=== PATIENT | male | born 1960 | race Caucasian/White ===

== ENCOUNTER → 2020-07-23 | Outpatient (REF) | payer OTHER ==
--- NOTE | 2020-07-23 15:02 | Diagnostic Imaging Report ---
EXAMINATION: Magnetic resonance imaging of the right knee without intravenous contrast. DATE: July 23, 2020. COMPARISON: None. INDICATION: 60-year-old male, right medial knee pain. Stepped in hole one week ago. [place] a pop. TECHNIQUE: Multiplanar, multisequence noncontrast enhanced MR imaging was accomplished. FINDINGS: MENISCI: There is signal in the medial meniscus not meeting strict MRI criteria for definite diagnosis of a tear. The lateral meniscus is intact. LIGAMENTS AND TENDONS: The anterior and posterior cruciate ligaments are intact. The medial collateral ligament is intact. The iliotibial band, mid third lateral capsular ligament, fibular collateral ligament, biceps femoris tendon, and conjoined tendon are intact. The quadriceps tendon and patella ligament are intact. JOINT: There are broad areas of approximately 50% cartilage thinning of the lateral patellar facet cartilage. There is underlying subchondral edema. There is thinning of the cartilage of the adjacent lateral femoral trochlea. There are areas of full-thickness or near full-thickness cartilage loss involving the mid weightbearing portion of the medial femoral condyle measuring at least 9 mm in transverse dimension. There is adjacent thinning of the cartilage of the medial tibial plateau. There is a focal full-thickness cartilage defect of the lateral femoral condyle measuring 3 mm in transverse dimension. There is no knee joint effusion, prominent synovitis, or intra-articular body. BONE: There is edema-like signal in the medial tibial plateau without identified fracture line. The additional bone marrow signal is unremarkable. BURSAE AND SOFT TISSUES: There is no Dozier's cyst. There is mild nonspecific prepatellar subcutaneous edema. IMPRESSION: 1. Intact menisci and cruciate ligaments. Additional ligaments and tendons are intact. 2. Moderate patellofemoral, moderate medial, and mild lateral compartment osteoarthritis. No knee joint effusion. 3. Edema-like signal in the medial tibial plateau which potentially could reflect a bone contusion or stress related marrow changes. This also could be degenerative related; however, there is no adjacent marrow edema in the medial femoral condyle. Dictated by: Dictated on workstation # [id number]
== END ==
LOC: RAD 13:06
PROVIDERS: ATTEND Nurse Practitioner Family
DX: M17.11 Unilateral primary osteoarthritis, right knee (principal)
CPT/HCPCS: 73721

== ENCOUNTER → 2020-08-01 | Outpatient (CLI) | payer OTHER ==
--- NOTE | 2020-08-01 10:33 | Diagnostic Imaging Report ---
INDICATION: Right knee pain. Time of exam 10:20 AM 3 views right knee were obtained. Medial compartmental narrowing is noted. Lateral compartments maintained. There is some mild patellofemoral compartmental narrowing and marginal spurring. No fracture, dislocation or effusion is detected. IMPRESSION: Degenerative changes. No acute bony abnormality is detected. Dictated by: Dictated on workstation # [id number]
== END ==
LOC: ORTHO 10:04
PROVIDERS: ATTEND Orthopaedic Surgery
DX: M17.11 Unilateral primary osteoarthritis, right knee (principal)
CPT/HCPCS: 73562; 99203

== ENCOUNTER → 2020-08-15 | Outpatient (CLI) | payer OTHER | LOC: ORTHO 08:37 | PROVIDERS: ATTEND Orthopaedic Surgery | DX: S83.411A Sprain of medial collateral ligament of right knee, initial encounter (principal); W18.42XA Slipping, tripping and stumbling without falling due to stepping into hole or opening, initial encounter | CPT/HCPCS: 99213 ==

== ENCOUNTER → 2020-08-29 | Outpatient (CLI) | payer OTHER ==
--- NOTE | 2020-08-29 12:23 | Diagnostic Imaging Report ---
INDICATION: Sprain of medial collateral ligament of knee, stepped in a hole. TECHNIQUE: Three views of the right knee. CORRELATION STUDY: 08/01/2020. FINDINGS: Mild narrowing at the medial and to a lesser degree the lateral compartment. The articular surfaces are smooth. There is no acute bony abnormality. Mild degenerative changes with spur like formation of the patella. Suprapatellar joint effusion is present. No lipohemarthrosis. IMPRESSION: Stable examination of the right knee demonstrates no acute abnormality. Mild degenerative changes are present. Dictated by: Dictated on workstation # [id number]
== END ==
LOC: ORTHO 11:43
PROVIDERS: ATTEND Orthopaedic Surgery
DX: S83.411D Sprain of medial collateral ligament of right knee, subsequent encounter (principal); M17.11 Unilateral primary osteoarthritis, right knee; W18.42XD Slipping, tripping and stumbling without falling due to stepping into hole or opening, subsequent encounter
CPT/HCPCS: 73562; G0463; 99213

== ENCOUNTER → 2022-12-03 | Outpatient (CLI) | payer BC, OTHER ==
[~2022-12-03] MED LIST: GADOTERATE 0.5 MMOL/ML (CLARISCAN) 15 ML VIAL IV ONE; IOHEXOL 300 MG/ML 50 ML (OMNIPAQUE 300) VIAL IV ONE
--- NOTE | 2022-12-03 16:35 | Diagnostic Imaging Report ---
EXAMINATION: Magnetic resonance imaging of the left shoulder with intra-articular contrast. DATE: December 03, 2022. COMPARISON: Left shoulder arthrogram December 03, 2022. HISTORY: 62-year-old male, left shoulder pain. TECHNIQUE: Magnetic Resonance Imaging sequences were performed of the shoulder following the intra-articular administration of contrast. FINDINGS: ROTATOR CUFF, LIGAMENTS, TENDONS, AND MUSCLES: There is a full thickness full width tear of the supraspinatus tendon with tendon retraction to the level of the superior humeral head measuring approximately 2.1 cm. There is infraspinatus tendinopathy. The teres minor tendon is intact. The subscapularis tendon is intact. There is normal rotator cuff muscle bulk and signal. LONG HEAD OF BICEPS: The biceps labral attachment and long head of the biceps tendon is intact. The long head of the biceps tendon is normally positioned within the bicipital groove. GLENOHUMERAL JOINT: The humeral head is well positioned relative to the glenoid. The labrum is grossly intact. There is no identified paralabral cyst. The articular cartilage is grossly intact. There is no identified intra-articular body or prominent synovitis. ACROMIOCLAVICULAR JOINT: The acromioclavicular joint is normally aligned. The coracoclavicular and coracoacromial ligaments are intact. There are severe acromioclavicular degenerative changes with osteophytes extending approximately 4 mm below the expected joint margin. BONE: There is no os acromiale. There is no Hill-Sachs deformity. There is no acute fracture, bone contusion, or evidence of osteonecrosis. There is degenerative related edema adjacent to the acromioclavicular joint. BURSAE AND SOFT TISSUES: There is contrast extension into the subacromial subdeltoid bursa relating to the full-thickness rotator cuff tendon tear. The contrast also extends into the acromioclavicular joint. There is no current geyser. IMPRESSION: 1. Full thickness full width tear of the supraspinatus tendon with tendon retraction to the level of the superior humeral head. Infraspinatus tendinopathy. No fatty muscle atrophy. 2. Severe acromioclavicular degenerative changes with 4 mm undersurface osteophytes. 3. Intact labrum and unremarkable additional glenohumeral joint assessment. 4. No acute fracture, bone contusion, or evidence of osteonecrosis. Dictated by: Dictated on workstation # [id number]
--- NOTE | 2022-12-04 08:52 | Diagnostic Imaging Report ---
Left shoulder injection for MRI. INDICATION: Shoulder pain Following aseptic preparation of the skin and administration of local anesthesia, a 21-gauge needle was advanced into the glenohumeral joint using fluoroscopic guidance. Subsequently, a 12 mL mixture of Omnipaque 300 sodium chloride and 0.4 Clariscan was infused. The patient tolerated the procedure well and was sent to the MR suite in good condition. IMPRESSION: There has been a successful injection of the left glenohumeral joint. MRI is pending for further study. Dictated by: Dictated on workstation # [id number]
== END ==
LOC: RAD 14:15
DX: M75.122 Complete rotator cuff tear or rupture of left shoulder, not specified as traumatic (principal)
CPT/HCPCS: 23350; 73040; 73222